=== PATIENT | female | born 1975 | race Native Hawaiian/Other Pacific Islander ===

== ENCOUNTER 2020-02-19 21:26 | Observation (INO) | payer OTHER ==
[~2020-02-19] VITALS: Ht 165.1 cm; Wt 153.1 kg
[2020-02-19 21:55] VITALS: BP 143/95; TEMP 99.1
[2020-02-19] MEDS ORDERED: LARIN PO (22:01)
[2020-02-19] MEDS ORDERED: ALBU90AE13 INH (22:01)
[2020-02-19] MEDS ORDERED: OMEPRAZOLE DR20 MG PO (22:02)
[2020-02-19] MEDS ORDERED: DULO60CA2 PO (22:02)
[2020-02-19] MEDS ORDERED: CARV25TA PO (22:02)
[2020-02-19] MEDS ORDERED: MECLIZINE25 MG PO (22:03)
[2020-02-19] MEDS ORDERED: CLON0.5T36 PO (22:03)
[2020-02-19] MEDS ORDERED: IBU800 MG PO (22:04)
[2020-02-19] MEDS ORDERED: ZOFRAN8 MG PO (22:04)
[2020-02-19] MEDS ORDERED: SPIRONOLACT25 MG PO (22:05)
[2020-02-19] MEDS ORDERED: COZAAR25 MG PO (22:05)
[2020-02-19] MEDS ORDERED: PRAZ1CAP16 PO (22:05)
[2020-02-19 22:09] LABS: PLATELET COUNT 441 K/uL (152-353)
[2020-02-19 22:17] LABS: POTASSIUM 3.9 mmol/L (3.6-5.2); SODIUM 138 mmol/L (136-145)
[2020-02-20] VITALS (15 sets, daily range): BP systolic 83–150; BP diastolic 48–82; TEMP 98.1–98.8; Ht 165.1 cm; Wt 153.1 kg
[2020-02-20] MEDS ORDERED: DULOXETINE HCL30 MG PO (00:22)
[2020-02-20] MEDS ORDERED: DRIZALMA SPRINK60 MG PO (00:23)
[2020-02-20] MEDS ORDERED: LOSA50TA PO (00:24)
[2020-02-20] MEDS ORDERED: TRAZODONE HYDR150 MG PO (00:26)
[2020-02-20] MEDS ORDERED: ALL DAY ALLERGY10 M1 PO (00:27)
[2020-02-20 08:13] LABS: PLATELET COUNT 375 K/uL (152-353)
== END 2020-02-20 19:05 | disposition home or self-care (01) ==
LOC: ED 21:26 → ICU 23:05
PROVIDERS: Internal Medicine Endocrinology, Diabetes & Metabolism; ADMIT Hospitalist
DX: R07.89 Other chest pain (principal); J20.9 Acute bronchitis, unspecified; D72.828 Other elevated white blood cell count; I10 Essential (primary) hypertension; E66.8 Other obesity; Z68.43 Body mass index [BMI] 50.0-59.9, adult; Z71.3 Dietary counseling and surveillance; D68.0 Von Willebrand disease
CPT/HCPCS: 36415; 80053; 81000; 82550; 83880; 84484; 85027; 85610; 85730; 93005; 96365; 96375; 99220; 99284; G0378; J0456; J1650; J2405

== ENCOUNTER 2021-02-28 12:15 | Emergency (ER) | payer OTHER ==
[~2021-02-28] VITALS: Ht 165.1 cm; Wt 154.2 kg
[~2021-02-28 12:15] MED LIST: ALBU90AE13 INH; ALL DAY ALLERGY10 M1 PO; CARV25TA PO; CLON0.5T36 PO; COZAAR25 MG PO; DRIZALMA SPRINK60 MG PO; DULO60CA2 PO; DULOXETINE HCL30 MG PO; IBU800 MG PO; LARIN PO; LOSA50TA PO; MECLIZINE25 MG PO; OMEPRAZOLE DR20 MG PO; PRAZ1CAP16 PO; SPIRONOLACT25 MG PO; TRAZODONE HYDR150 MG PO; ZOFRAN8 MG PO
[2021-02-28 12:30] VITALS: BP 120/94; TEMP 97.9
== END 2021-02-28 14:24 | disposition home or self-care (01) ==
LOC: ED 12:15
DX: U07.1 COVID-19 (principal)
CPT/HCPCS: 87635; 96372; 99283; J1100; J3490; U0003